=== PATIENT | female | born 1965 | race Two or more races ===

== ENCOUNTER 2017-08-03 14:17 | Emergency (ER) | payer MEDICAID ==
[~2017-08-03] VITALS: Ht 165.1 cm; Wt 63.2 kg
[~2017-08-03 14:17] MED LIST: AMLO5TAB2 PO; LISI5TAB7 PO
[2017-08-03] MEDS ORDERED: ASPIRIN 81 MG TABLET CHEW ONE (14:54)
[2017-08-03] MEDS ORDERED: ASPIRIN 81 MG TABLET CHEW PO ONE (15:00)
[2017-08-03] MEDS ORDERED: MECLIZINE CHEWABLE 25 MG TAB ONE (15:10)
[2017-08-03] MEDS ORDERED: MECLIZINE CHEWABLE 25 MG TAB PO ONE (15:30)
[2017-08-03 15:35] LABS: HEMOGLOBIN 14.7 g/dL (11.7-16.4); WHITE BLOOD COUNT 11.3 x10^3/uL (3.4-10)
[2017-08-03 15:41] LABS: ASPARTATE AMINO TRANSFERASE 19 U/L (15-37); BLOOD UREA NITROGEN 25 mg/dL (7-18)
[2017-08-03 15:45] LABS: IS PT STATUS REG ER OR PRE ER? YES
[2017-08-03 17:26] VITALS: BP 161/95
== END 2017-08-03 17:28 | disposition home or self-care (01) ==
LOC: ED 17:22
DX: H81.399 Other peripheral vertigo, unspecified ear (principal); I25.2 Old myocardial infarction; I10 Essential (primary) hypertension
CPT/HCPCS: 36415; 70450; 71010; 80053; 84484; 85025; 93005; 99285